=== PATIENT | female | born 1995 | race Caucasian/White ===

== ENCOUNTER 2023-08-22 06:47 | Observation (INO) | payer OTHER, SELFPAY ==
[2023-08-22 06:55] VITALS: BP 126/81; BMI 27.5
[2023-08-22 08:19] LABS: Urine Albumin Negative (Neg - Trace); Urine Bilirubin Negative (Negative); Urine Character Clear (Clear); Urine Color Yellow; Urine Glucose Negative (Negative); Urine Ketone Negative (Negative); Urine Leukocyte Negative (Negative); Urine Nitrite Negative (Negative); Urine Occult Blood Negative (Negative); Urine Urobilinogen Negative (Neg - 1+)
== END 2023-08-22 09:57 | disposition home or self-care (01) ==
LOC: LDRP 06:47
PROVIDERS: ADMITTING PHYSICIAN Obstetrics & Gynecology; FAMILY PHYSICIAN Nurse Practitioner Adult Health
DX: M54.9 Dorsalgia, unspecified (principal); O09.813 Supervision of pregnancy resulting from assisted reproductive technology, third trimester; Z3A.33 33 weeks gestation of pregnancy
CPT/HCPCS: 81003; 87086; G0378

== ENCOUNTER → 2023-08-25 15:39 | Outpatient (REF) | payer OTHER, SELFPAY ==
[2023-08-25 17:57] LABS: % Basophils 0.1 % (0-2); % Eosinophils 0.2 % (0-6); % Immature Granulocytes 0.8 % (0-0.5); % Monocytes 5.6 % (1.7-9.3); % Neutrophils 80.3 % (42.2-75.2); Absolute Immature Granulocytes 0.1 10^3/uL (0-0.05); Absolute Lymphocytes 1.4 10^3/uL (1.2-3.4); Absolute Monocytes 0.6 10^3/uL (0.1-0.6); Absolute Neutrophils 8.7 10^3/uL (1.4-6.5); Hematocrit 29.8 % (37.0-47.0); Hemoglobin 10.9 g/dL (12.0-16.0); Mean Corp Hgb Conc. 36.6 g/dL (33.0-37.0); Mean Corpuscular Hgb 32.7 pg (27.0-31.0); Mean Corpuscular Volume 89.5 fL (81.0-99.0); Mean Platelet Volume 9.6 fL (7.4-10.4); Nucleated Red Blood Cells % 0 %; Platelet Count 224 10^3/uL (130-400); Red Blood Cell Count 3.33 10^6/uL (4.20-5.40); Red Cell Dist. Width 14.6 % (11.5-14.5); White Blood Cell Count 10.8 10^3/uL (4.8-10.8)
== END ==
LOC: OIDL 15:39
PROVIDERS: ATTENDING PHYSICIAN Internal Medicine Hematology & Oncology
DX: D50.9 Iron deficiency anemia, unspecified (principal)
CPT/HCPCS: 85025

== ENCOUNTER → 2023-09-25 16:12 | Outpatient (REF) | payer OTHER, SELFPAY | LOC: PNTC 16:12 | PROVIDERS: ATTENDING PHYSICIAN Obstetrics & Gynecology | DX: O09.819 Supervision of pregnancy resulting from assisted reproductive technology, unspecified trimester (principal) | CPT/HCPCS: 59025; 76816 ==

== ENCOUNTER 2023-10-02 19:36 | Inpatient (IN) | payer OTHER, SELFPAY ==
[2023-10-02 20:17] VITALS: BMI 29.1
[2023-10-02 20:19] VITALS: BP 118/82
[2023-10-02] MEDS: CYTOTEC 25 MICROGRAM VAG (20:59)
[2023-10-02 21:11] LABS: % Basophils 0.2 % (0-2); % Eosinophils 0.2 % (0-6); % Immature Granulocytes 0.7 % (0-0.5); % Lymphocytes 13.5 % (20.5-51.1); % Monocytes 5.3 % (1.7-9.3); % Neutrophils 80.1 % (42.2-75.2); Absolute Immature Granulocytes 0.1 10^3/uL (0-0.05); Absolute Lymphocytes 1.6 10^3/uL (1.2-3.4); Absolute Monocytes 0.6 10^3/uL (0.1-0.6); Absolute Neutrophils 9.3 10^3/uL (1.4-6.5); Hematocrit 33.1 % (37.0-47.0); Hemoglobin 11.7 g/dL (12.0-16.0); Mean Corp Hgb Conc. 35.3 g/dL (33.0-37.0); Mean Corpuscular Hgb 32.3 pg (27.0-31.0); Mean Corpuscular Volume 91.4 fL (81.0-99.0); Mean Platelet Volume 10.3 fL (7.4-10.4); Nucleated Red Blood Cells % 0 %; Platelet Count 169 10^3/uL (130-400); Red Blood Cell Count 3.62 10^6/uL (4.20-5.40); Red Cell Dist. Width 14.1 % (11.5-14.5); White Blood Cell Count 11.6 10^3/uL (4.8-10.8)
[2023-10-03] MEDS: CYTOTEC 50 MICROGRAM PO ×2 (01:08→05:16)
[2023-10-03] MEDS: CYTOTEC PO ×3 (09:21→17:37)
[2023-10-03] MEDS: LR 1000 IV (11:00)
[2023-10-03] MEDS: PITOCIN 30 UNITS/NSS 500 ML IV (11:00)
[2023-10-03] MEDS: FENTANYL/BUPIVACAINE 100 EPIDURAL ×2 (13:09→20:43)
[2023-10-03] MEDS: SUBLIMAZE 100 MCG EPIDURAL (13:09)
[2023-10-03] MEDS: TYLENOL 650 MG PO (15:45)
[2023-10-04] MEDS: LR 1000 IV ×2 (00:23→05:25)
[2023-10-04] MEDS: CYTOTEC PO (02:56)
[2023-10-04] MEDS: FENTANYL/BUPIVACAINE 100 EPIDURAL ×2 (03:48→10:56)
[2023-10-04] MEDS: ZOFRAN 4 MG IV (08:29)
[2023-10-04] MEDS: PRENATAL PLUS PO (08:30)
[2023-10-04] MEDS: PEPCID 40 MG PO (10:35)
[2023-10-04] MEDS: TYLENOL 1000 MG PO (11:19)
[2023-10-04] MEDS: ANCEF 10 IV (11:20)
[2023-10-04] MEDS: BICITRA 30 ML PO (11:20)
[2023-10-04] MEDS: ZITHROMAX INFUSION 250 IV (11:21)
[2023-10-04 13:21] LABS: % Basophils 0.1 % (0-2); % Immature Granulocytes 0.8 % (0-0.5); % Lymphocytes 3.4 % (20.5-51.1); % Monocytes 4.2 % (1.7-9.3); % Neutrophils 91.5 % (42.2-75.2); Absolute Immature Granulocytes 0.2 10^3/uL (0-0.05); Absolute Lymphocytes 0.7 10^3/uL (1.2-3.4); Absolute Monocytes 0.9 10^3/uL (0.1-0.6); Absolute Neutrophils 19.1 10^3/uL (1.4-6.5); Hemoglobin 10.1 g/dL (12.0-16.0); Mean Corp Hgb Conc. 34.8 g/dL (33.0-37.0); Mean Corpuscular Hgb 32.7 pg (27.0-31.0); Mean Corpuscular Volume 93.9 fL (81.0-99.0); Mean Platelet Volume 10.2 fL (7.4-10.4); Nucleated Red Blood Cells % 0 %; Platelet Count 157 10^3/uL (130-400); Red Blood Cell Count 3.09 10^6/uL (4.20-5.40); Red Cell Dist. Width 14.4 % (11.5-14.5); White Blood Cell Count 20.9 10^3/uL (4.8-10.8)
[2023-10-04] MEDS: DEMEROL 12.5 MG IV (13:31)
[2023-10-04 13:35] LABS: ALT (SGPT) 13 U/L (0-35); AST (SGOT) 24 U/L (14-36); Albumin 2.8 g/dl (3.5-5.0); Alkaline Phosphatase 195 U/L (38-126); Blood Urea Nitrogen 9 mg/dl (7-17); Calcium 9.2 mg/dl (8.4-10.2); Carbon Dioxide 18 mmol/L (22-30); Chloride 107 mmol/L (98-107); Estimated Creatinine Clearance 122 ml/min; Glucose 80 mg/dl (70-99); Potassium 4.1 mmol/L (3.5-5.1); Sodium 133 mmol/L (135-145); Total Bilirubin 0.6 mg/dl (0.2-1.3); Total Protein 5.1 g/dl (6.3-8.2); eGFR > 60.00
[2023-10-04] MEDS: BENADRYL 25 MG IV (14:12)
[2023-10-04] MEDS: TORADOL 15 MG IV ×2 (17:34→23:33)
[2023-10-04] MEDS: LEXAPRO PO (22:05)
[2023-10-05] MEDS: TYLENOL 650 MG PO ×2 (04:15→18:40)
[2023-10-05] MEDS: MYLICON 80 MG PO ×3 (04:15→16:02)
[2023-10-05 05:03] LABS: Hematocrit 21.2 % (37.0-47.0); Mean Corp Hgb Conc. 35.4 g/dL (33.0-37.0); Mean Corpuscular Hgb 32.6 pg (27.0-31.0); Mean Corpuscular Volume 92.2 fL (81.0-99.0); Mean Platelet Volume 10.1 fL (7.4-10.4); Platelet Count 153 10^3/uL (130-400); Red Cell Dist. Width 14.3 % (11.5-14.5); White Blood Cell Count 19.5 10^3/uL (4.8-10.8)
[2023-10-05 05:13] LABS: Hemoglobin 7.5 g/dL (12.0-16.0)
[2023-10-05] MEDS: TORADOL 15 MG IV ×2 (06:10→12:44)
[2023-10-05] MEDS: PRENATAL PLUS 1 TABLET PO (08:29)
--- NOTE | 2023-10-05 11:49 | W.PN.ANS.POP ---
Anesthesia Post Operative
- Anesthesia Post Op Note
Vital Signs Stable-See Nursing Note: Yes
Airway Patent: Yes
Adequate Pain Control: Yes
Change in Mental Status: No
Current Postoperative Nausea & Vomiting: No
Anesthesia Complications: No
General Anesthetic Recall: No
Unplanned Admission: No
Post Op Hydration Adequate: Yes
[2023-10-05] MEDS: MOTRIN 600 MG PO (18:41)
[2023-10-05] MEDS: FEOSOL 325 MG PO (19:51)
[2023-10-05] MEDS: LEXAPRO 10 MG PO (22:02)
[2023-10-06] MEDS: TYLENOL 650 MG PO ×2 (00:04→08:28)
[2023-10-06] MEDS: MOTRIN 600 MG PO ×4 (00:42→21:49)
[2023-10-06] MEDS: MYLICON 80 MG PO ×3 (02:49→21:49)
[2023-10-06] MEDS: SENOKOT-S 1 TABLET PO (08:27)
[2023-10-06] MEDS: FEOSOL 325 MG PO ×2 (08:27→19:39)
[2023-10-06] MEDS: PRENATAL PLUS 1 TABLET PO (08:27)
[2023-10-06 16:08] LABS: Syphilis/T. pallidum Ab Reflex Negative (Negative)
[2023-10-06] MEDS: LEXAPRO 10 MG PO (21:49)
[2023-10-07] MEDS: MYLICON 80 MG PO (06:08)
[2023-10-07] MEDS: MOTRIN 600 MG PO (06:08)
[2023-10-07] MEDS: FEOSOL 325 MG PO (07:58)
[2023-10-07] MEDS: PRENATAL PLUS 1 TABLET PO (07:58)
--- NOTE | 2023-10-07 10:06 | W.DS.TRANS ---
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
-
Discharge Instructions:
Discharge Diagnosis/Procedures delivery
Instructions:
Stand-Alone Forms: LDRP Delivery
Changes to Home Medications: No
Discharge Medications:
DC Medications w/original date entered in [facility]
escitalopram oxalate 10 mg tablet (Lexapro) 10 mg PO HS depression/anxiety 08/22/23
prenat.vits,rosangela,zpu-urme-lqigh 1 tab PO DAILY Supplement 08/22/23
acetaminophen 325 mg tablet 650 mg (2 x 325 mg) PO Q4HPRN PRN mild pain #0 tabs 10/07/23
ferrous sulfate 325 mg (65 mg iron) tablet (FeroSul) 325 mg PO BID #0 tabs 10/07/23
ibuprofen 600 mg tablet 600 mg PO Q6HPRN PRN cramps #40 tabs 10/07/23
sennosides 8.6 mg-docusate sodium 50 mg tablet (Stool Softener-Laxative) 1 tab PO DAILYPRN PRN constipation #0 tabs 10/07/23
simethicone 80 mg chewable tablet 80 mg PO TIDPRN PRN flatulence #0 tabs 10/07/23
Home Medication Changes
Pending Results: No
Total time spent discharging patient (in min): 20
[2023-10-07] MEDS: M-M-R II 0.5 ML SC (10:30)
== END 2023-10-07 11:34 | disposition home or self-care (01) | DRG 788 ==
LOC: LDRP 19:36
PROVIDERS: Obstetrics & Gynecology; ADMITTING PHYSICIAN Obstetrics & Gynecology
PROC: 3E0P7VZ Introduction of Hormone into Female Reproductive, Via Natural or Artificial Opening (ICD-10-PCS; 2023-10-02)
PROC: 3E033VJ Introduction of Other Hormone into Peripheral Vein, Percutaneous Approach (ICD-10-PCS; 2023-10-03)
PROC: 10D00Z1 Extraction of Products of Conception, Low, Open Approach (ICD-10-PCS; 2023-10-04)
DX: O36.63X0 Maternal care for excessive fetal growth, third trimester, not applicable or unspecified (principal); O62.1 Secondary uterine inertia; Z3A.39 39 weeks gestation of pregnancy; Z37.0 Single live birth
CPT/HCPCS: 88307; 36415; 80053; 85025; 85027; 86780; 86850; 86900; 86901; 90707